=== PATIENT | male | born 1975 | race Caucasian/White ===

== ENCOUNTER 2017-02-08 07:15 | Day surgery (SDC) | payer OTHER ==
[~2017-02-08] VITALS: Ht 170.2 cm; Wt 81.9 kg
[2017-02-08] VITALS (19 sets, daily range): BP systolic 76–121; BP diastolic 47–79; PULSE 50–87; RESP 10–26; Ht 170.2 cm; Wt 81.9 kg
[~2017-02-08 07:15] MED LIST: CEFAZOLIN 1 GM INJ ONE; CEFAZOLIN 2 GM/50 ML (PMX) 50 ML IVPB SCH; DEXAMETHASONE 4 MG/ML 1 ML INJ ONE; ONDANSETRON 4 MG INJ ONE
[2017-02-08] MEDS ORDERED: ARIP10TA13 PO (08:00)
[2017-02-08] MEDS ORDERED: TEMA30CA PO (08:01)
[2017-02-08] MEDS ORDERED: MIRT30TA5 PO (08:01)
[2017-02-08] MEDS ORDERED: TRAZ100T15 PO (08:01)
[2017-02-08] MEDS ORDERED: DIVA500T15 PO (08:02)
--- NOTE | 2017-02-08 08:02 | RADRPT ---
PROCEDURE: XR Chest. CLINICAL INDICATION: Preop, undescended testicle TECHNIQUE: AP Portable chest. COMPARISON: No pertinent prior examinations were submitted for comparison. FINDINGS: The patient is rotated. Elevated left hemidiaphragm and compressive changes are visualized.. The cardiomediastinal silhouette is normal. The aorta is normal. No focal consolidation, pleural eff usion or pneumothorax is seen. The osseous structures are intact. The stomach is distended. IMPRESSION: No radiographic evidence of acute cardiopulmonary disease. Elevated left hemidiaphragm and atelectasis. Physician Clau Date Time Electronically viewed and signed by Physician Clau on 02/08/2017 08:02 CS/
[2017-02-08 08:51] LABS: BASOPHIL # 0.1 10^3/ul (0.0-0.1); EOSINOPHILS # 0.1 10^3/ul (0.0-0.5); EOSINOPHILS % 1.7 % (0.0-7.0); HEMATOCRIT 46.7 % (42.0-52.0); HEMOGLOBIN 15.9 g/dl (14.0-18.0); LYMPHOCYTES # 2.5 10^3/ul (0.8-2.9); LYMPHOCYTES % 30.1 % (15.0-51.0); MEAN CORPUSCULAR HEMOGLOBIN 32.1 pg (29.0-33.0); MEAN CORPUSCULAR VOLUME 94.2 fl (82.0-101.0); MEAN PLATELET VOLUME 11.6 fl (7.4-10.4); MONOCYTE # 1.1 10^3/ul (0.3-0.9); MONOCYTES % 12.9 % (0.0-11.0); NEUTROPHILS % 53.6 % (39.0-77.0); PLATELET COUNT 185 10^3/UL (140-415); RED BLOOD COUNT 4.96 10^6/ul (4.70-6.10); RED CELL DISTRIBUTION WIDTH 13.1 % (11.5-14.5); WHITE BLOOD COUNT 8.1 10^3/ul (4.8-10.8)
[2017-02-08 08:53] LABS: ALBUMIN 3.9 g/dl (3.3-4.9); ALBUMIN/GLOBULIN RATIO 0.97; BILIRUBIN,INDIRECT 0.3 mg/dl (0-1.1); BILIRUBIN,TOTAL 0.3 mg/dl (0.2-1.3); TOTAL PROTEIN 7.9 g/dl (6.1-8.1)
[2017-02-08] MEDS ORDERED: hydrALAzine 20 MG INJ IV PRN (09:00)
[2017-02-08] MEDS ORDERED: KETOROLAC 30 MG INJ IV PRN (09:00)
[2017-02-08] MEDS ORDERED: OXYCODONE/ACETAMINOPHEN (5/325) TAB PO PRN ×2 (09:00)
[2017-02-08] MEDS ORDERED: HYDROmorphONE (0.2 MG/ML) 10ML SYG IV PRN ×3 (09:00)
[2017-02-08] MEDS ORDERED: EPHEDrine SULFATE 50 MG/5 ML SYG IV PRN (09:00)
[2017-02-08] MEDS ORDERED: MEPERIDINE 25 MG INJ IV PRN (09:00)
[2017-02-08] MEDS ORDERED: FENTAnyl 50 MCG/ML VIAL IV PRN ×3 (09:00)
[2017-02-08] MEDS ORDERED: DIPHENHYDRAMINE 50 MG INJ IV PRN (09:00)
[2017-02-08] MEDS ORDERED: ONDANSETRON 4 MG INJ IV PRN (09:00)
[2017-02-08] MEDS ORDERED: LABETALOL HCL 20MG INJ IV PRN (09:00)
[2017-02-08 09:15] LABS: CALCIUM 9.3 mg/dl (8.4-10.2); CREATININE 0.84 mg/dl (0.61-1.24)
[2017-02-08 09:21] LABS: INR 0.97; PROTIME 12.9 Sec (12.2-14.2)
[2017-02-08 09:22] LABS: PARTIAL THROMBOPLASTIN TIME 27.7 Sec (25.0-35.0)
[2017-02-08] MEDS ORDERED: MIDAZOLAM 1 MG/ML 2 ML INJ ONE (09:23)
[2017-02-08] MEDS ORDERED: BUPIVACAINE 0.5% (SDV) 30 ML INJ ONE (09:48)
--- NOTE | 2017-02-08 10:00 | HP ---
DATE OF ADMISSION: 02/08/2017 HISTORY OF PRESENT ILLNESS: The patient is a 15-year-old male with a history of Dandy-Walker, history of recurrent urinary tract infections. Noted to have a right undescended testicle on physical examination, it is felt there is a questionable right testicle in the inguinal canal. The left testicle is within normal limits. CT scan of the abdomen and pelvis without contrast demonstrates the right testicle to be within the right inguinal canal. The patient now presents for right radical orchiectomy. PAST MEDICAL HISTORY: 1. Dandy-Walker. 2. Anxiety. PAST SURGICAL HISTORY: None. MEDICATIONS: 1. Abilify 10 mg p.o. b.i.d. 2. Divalproex sodium 500 mg p.o. b.i.d. 3. Mirtazapine 30 mg p.o. q.h.s. 4. Temazepam 30 mg p.o. q.h.s. 5. Trazodone 100 mg p.o. q.h.s. PHYSICAL EXAMINATION: LUNGS: Good breath sounds bilaterally. HEART: Regular rate and rhythm. ABDOMEN: Soft, nondistended, nontender. No palpable masses. Flank is no CVA tenderness. No masses. GENITOURINARY: Normal shaft of penis. Normal meatus. Unable to palpate the right testicle. Normal left testicle. IMPRESSION: Right undescended testicle. PLAN: Right radical orchiectomy. How the procedure is performed, potential complications, side effects, have all been reviewed with the patient's mother and father who are the guardians. Emilie would like to proceed. Preoperative consent has been reviewed and signed in the office. Dictated By: Anthony Colunga MD /[email or web address]/[email or web address] /Document#: [id number]
--- NOTE | 2017-02-08 10:24 | PDOCDIS ---
Discharge Instructions DIAGNOSIS Discharge Diagnosis Right Undescended testicle CONDITION Patient Condition: Good HOME CARE INSTRUCTIONS: Diet Instructions: Regular ACTIVITY: Activity Restrictions: Slowly Increase Activity Bathing Restrictions: Shower FOLLOW UP/APPOINTMENTS Follow-up Plan 2 weeks, call for time and date OTHER ORDERS: Other Orders: keep wound clean and dry x 3 days. Ok to remove dressing on Sunday SCHOOL/WORK RELEASE May return to School/Work on: Jan 21, 2018 TUCKER MIRZA Feb 08, 2017 10:24
[2017-02-08] MEDS ORDERED: GLYCOPYRROLATE 0.4 MG INJ ONE (10:30)
[2017-02-08] MEDS ORDERED: PROPOFOL 100 ML ONE (10:30)
[2017-02-08] MEDS ORDERED: NEOSTIGMINE 3 MG/3 ML SYRINGE ONE ×2 (10:30)
[2017-02-08] MEDS ORDERED: LIDOCAINE 2% (SDV) 5 ML INJ ONE (10:30)
--- NOTE | 2017-02-08 10:32 | OPR ---
Date/Time of Note Date/Time of Note DATE: 02/08/17 TIME: 10:26 Operative Report Procedure Date: Feb 08, 2017 Preoperative Diagnosis right udt Postoperative Diagnosis same Operation Performed right radical orchiectomy Surgeon: TUCKER MIRZA Anesthesia Type: general Estimated Blood Loss: none Transfusion Required: no Specimens right testicle and cord Tubes/Drains none Complications: no Pt Condition Post Procedure: stable Disposition: PACU Indications right undescended testicle Operative\Procedure Findings dicated # [id number] TUCKER MIRZA Feb 08, 2017 10:32
--- NOTE | 2017-02-08 11:42 | OPR ---
DATE OF OPERATION: 02/08/2017 BRIEF HISTORY: Mathew is a 41-year-old male with a right undescended testicle, who presented for right radical orchiectomy. PREOPERATIVE DIAGNOSIS: Right undescended testicle. POSTOPERATIVE DIAGNOSIS: Right undescended testicle. OPERATION PERFORMED: Right radical orchiectomy. SURGEON: Dr. Colunga. ANESTHESIA: General with local. COMPLICATIONS: None. ESTIMATED BLOOD LOSS: Negligible. PATHOLOGY: Right testicle and cord structure. COMPLICATIONS: None. OPERATIVE PROCEDURE: The patient was brought into the operating room and placed on operating room table in the supine position. He was prepped and draped in usual fashion after anesthesia was induced. A time-out was undertaken. Appropriate pressure points were padded and he received preop antibiotic therapy. Sequential compression devices were applied. Physical examination under anesthesia demonstrated a fullness in the mid portion of the right inguinal canal. Subsequently, an incision was created overlying and parallel to the inguinal canal with the inferior aspect over the external ring and superior aspect over the internal ring. The incision was taken down through Satya's fascia, thus exposing the aponeurosis of the external oblique, which was then opened, care being noted to the underlying ilioinguinal nerve, which was well preserved throughout the entire case. With dissection of the tissue, an atrophied right testicle was noted within the mid canal. The cord structures were then freed up, as well as the testicle from the surrounding structures, thus allowing the cord structure to be free to the level of the internal canal. At which point, the cord structure was doubly ligated with a 0 silk suture and then the cord was cut with the Metzenbaum scissors, thus delivering the testicle and cord. Pinpoint hemostasis was obtained. The fascia was then reapproximated in a running stitch of 3-0 Vicryl suture. The skin edges were reapproximated with a running stitch of 3-0 Vicryl suture. Dermabond was applied, as well as a Tegaderm dressing. A scrotal support and fluffs were additionally applied. The sponge and needle count were all correct. There were no noted complications. He was transferred to recovery room in stable condition. ill be discharged to home on [place] 5/325, 1-2 tabs p.o. q.6 hours p.r.n., dispensed #40, no refill. He will follow up in the office in 2 week's time. Dictated By: Anthony Colunga MD /[email or web address]/natalio /Document#: [id number]
--- NOTE | 2017-02-08 17:07 | RADRPT ---
Vent Rate: 81 bpm RR Interval: 0 msec OK Interval: 118 msec QRS Duration: 82 msec QT Interval: 372 msec QTC Interval: 432 msec P-R-T [place]: 64 - 60 - 52 degrees Normal sinus rhythm RSR apos; orattern in V1 suggests right ventricular conduction delay Borderline ECG Electronically Signed By: Seng Evangelista [id number]
== END 2017-02-08 12:33 | disposition home or self-care (01) ==
LOC: SDS 07:15
PROVIDERS: ATTEND Urology
DX: N30.00 Acute cystitis without hematuria (principal); Q53.10 Unspecified undescended testicle, unilateral; F79 Unspecified intellectual disabilities
CPT/HCPCS: 54530; 71010; 80053; 85025; 85610; 85730; 88305; 93005; J0690; J1100; J2250; J2405; J3010; Z7512; Z7610; J2710